=== PATIENT | male | born 1985 | race Caucasian/White ===

== ENCOUNTER 2017-03-15 13:29 | Emergency (ER) | payer OTHER ==
[~2017-03-15] VITALS: Ht 188 cm; Wt 113.2 kg
[~2017-03-15 13:29] MED LIST: AMOXICILLIN875 MG OR; CIPRO500 MG OR; CLINDAMYCIN150 MG PO; KURIC2 % EX; LORTAB 7.5 OR; MAALOX/BEN PO; NO; NO HOME MEDS; PERCOCET 5/325M1 TAB OR; [UNRECOGNIZED DRUG - REMARK]
[2017-03-15 13:30] VITALS: BP 144/71
== END 2017-03-15 15:20 | disposition left against medical advice (07) | DRG 951 ==
LOC: ED 13:29 → LWOBS 15:20
DX: Z91.19 Patient's noncompliance with other medical treatment and regimen (principal)

== ENCOUNTER → 2019-05-04 | Day surgery (SDC) | payer SELFPAY ==
[~2019-05-04] VITALS: Ht 188 cm; Wt 113.4 kg
[~2019-05-04] MED LIST changes: +CYCLOBENZAPR10 MG PO; +DOCUSATE CAL240 MG PO; +FLOVENT DI50 MCG/BLI; +GOODY S PO; +LEVOCETIRIZINE D5 MG PO; +MIRALAX3350 N1 PO; +PERCOCET 5/325M1 TAB PO
[2019-05-04 10:40] LABS: BARBITURATES NEGATIVE (NEGATIVE); COCAINE NEGATIVE (NEGATIVE); METHADONE NEGATIVE (NEGATIVE); OXCYCODONE NEGATIVE (NEGATIVE); TETRAHYDROCANNABIONOL POSITIVE (NEGATIVE); TRICYLIC ANTIDEPRESSANTS NEGATIVE (NEGATIVE)
[2019-05-04 12:19] VITALS: BP 120/66
== END | disposition home or self-care (01) | DRG 349 ==
LOC: ORM 09:10
PROVIDERS: ATTEND Surgery
PROC: 0D8R3ZZ Division of Anal Sphincter, Percutaneous Approach (ICD-10-PCS; principal; 2019-05-04)
DX: K60.0 Acute anal fissure (principal); K60.1 Chronic anal fissure; K64.4 Residual hemorrhoidal skin tags; K64.8 Other hemorrhoids
CPT/HCPCS: C9290; J1100